=== PATIENT | male | born 1955 | race Caucasian/White ===

== ENCOUNTER 2018-11-22 09:00 | Emergency (ER) | payer SELFPAY ==
[2018-11-22] VITALS (8 sets, daily range): BP systolic 131–145; BP diastolic 74–93; PULSE 71–107; RESP 15–17; TEMP 36.4–36.7; O2SAT 96–98; BMI 29.5
--- NOTE | 2018-11-22 09:18 | CT_ITS ---
STUDY: CT ABDOMEN AND PELVIS WITH CONTRAST REASON FOR EXAM: Male, 63 years old. Dark-colored urine, diarrhea and family history on this. RADIATION DOSAGE (If Supplied By Facility): CTDIvol = ( 15.04 ) mGy, DLP = ( 1148.17 ) mGycm TECHNIQUE: Transaxial images were obtained from the dome of the diaphragm to the symphysis pubis with oral contrast. 100 ml IV Isovue 300 was administered. Sagittal and coronal images were reconstructed. Individualized dose optimization techniques were used for this CT. COMPARISON: Prior comparison studies are not available for review at this time. FINDINGS: There is bilateral basilar dependent atelectasis. The visualized portions of the heart are within normal limits. There are dilated intrahepatic biliary ducts. No liver masses are identified. The gallbladder is very distended measuring approximately 12.5 cm in length. There is a dilated common bile duct which measures 1.5 cm in greatest transverse dimension. The pancreatic duct is dilated measuring up to 8.5 mm in transverse dimension. This suggests an ampullary process probably a mass. Noncalcified stone is possible. A calcified stone is not visualized. Normal spleen. The pancreas is generally atrophic. Normal bilateral adrenal glands. There are multiple low small renal cysts with the largest on the right measuring approximately 10 mm in greatest dimension. There is no evidence for hydronephrosis, hydroureter or radiopaque ureteral calculus. Normal visualized stomach. Is no evidence for dilated bowel, ascites or pneumoperitoneum. The small bowel has a grossly normal appearance. The patient be abnormal thickening of the orozco of the descending colon possibly related to acute or chronic inflammation. The orozco measure up to 1.5 cm in greatest thickness. There is gaseous distention of the transverse colon. There is also gaseous distention of the ascending colon. There is nonspecific thickening of the orozco of the proximal sigmoid colon. There is non-visualization of the appendix. There is patchy atherosclerotic calcification of the abdominal aorta, without a demonstrated aneurysm. Normal inferior vena cava. Normal retroperitoneum. Normal urinary bladder. There are prostatic calcifications. There is a small umbilical hernia containing fat. No degenerative changes of the pubic symphysis. 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 There is degenerative disc disease at L5-S1. The bony pelvis has a grossly normal appearance. There are mild degenerative changes of both hips. CT/Abdomen/Pelvis WITH Contrast IMPRESSION: 1. 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 2. Nonspecific thickening of the orozco of the ascending colon and sigmoid colon possibly related to previous infection or inflammation. 3. Bilateral renal cysts. 4. Very distended gallbladder is probably related to #1. Electronically Signed: Marisol Patton MD at 11:39 EDT , Service support ,
[2018-11-22 09:31] LABS: Absolute Lymphocyte Count 1.18 X10^3/ul (0.83-4.51); Absolute Neutrophil Count 2.2 X10^3/uL (2.0-7.7); Basophil# 0.03 X10^3/uL; Basophil% 0.8 % (0-1); Eosinophil# 0.06 X10^3/uL; Eosinophils% 1.6 % (0-5); Hemoglobin 14.4 g/dl (13.0-16.5); Lymphocyte # 1.18 X10^3/ul (4.0); Lymphocyte % 30.5 % (19-41); Mean Corp Hgb Conc 33.5 g/gl (32-36); Mean Corpuscular Hgb 28.4 pg (27.0-32.0); Mean Corpuscular Volume 84.8 fL (80-94); Mean Platelet Vol. 11.7 fl (6.2-12.0); Monocyte# 0.36 X10^3/uL; Monocyte% 9.3 % (0-10); Neutrophil # 2.23 X10^3/uL (2.7-7.7); Neutrophil % 57.5 % (47-70); Platelet Count 161 K/mm3 (150-450); RBC Distribution Width CV 15.1 % (11.6-14.6); RBC Distribution Width SD 46.6 fl (35.1-43.9); Red Blood Count 5.07 M/mm3 (4.6-6.2); White Blood Count 3.9 K/mm3 (4.4-11.0)
[2018-11-22] MEDS: 0.9% Normal Saline 1,000 ML 1000 ML IV (09:32)
[2018-11-22 09:33] LABS: POSITIVE COUNT NO; POSITIVE DIFFERENTIAL NO; POSITIVE MORPHOLOGY NO
--- NOTE | 2018-11-22 09:42 | ED.DCSUM_ITS ---
- ER Visit Summary Date of Service: 11/22/18 Chief Complaint: Abnormal labs History of Present Illness: The patient is a 63 M who presents with abnormal labs that were noted yesterday. Patient went to the urgent care yesterday and had labs drawn. Patient had a total bilirubin of 17.6 and an ALT of 1345 at the urgent care yesterday. Patient was then referred to the emergency department today. Patient admits to some mild dull epigastric pain. Patient denies any nausea or vomiting. Patient denies any fevers or chills. Patient denies any chest pain or shortness of breath Physical Examination: Vital signs are stable except for mild tachycardia of 107. Patient is afebrile. Patient is in no acute distress. Oral mucosa is pink and moist. Pupils are equal, round, and reactive to light bilaterally. Extraocular muscles are intact. There is scleral icterus noted. Neck is supple. Trachea is midline. There is no JVD noted. Heart was regular and slightly tachycardic. Lungs are clear and equal bilaterally. Abdomen is soft. Bowel sounds are normal. There is no tenderness. There is no rebound or guarding noted. Skin is jaundiced. Cranial nerves II through XII are intact. There are no focal motor or sensory deficits noted. Test Results: CBC was within normal limits. Comprehensive metabolic profile showed a total bilirubin of 20.10, alk phos of 428, ALT of 1761, and AST of 1031. Urinalysis showed an elevated urine bilirubin of 6 and an elevated urobilinogen of 8. There is no evidence of urinary tract infection. CT scan of the abdomen and pelvis showed dilated intrahepatic and extrahepatic hepatic ducts and dilated biliary ducts. This is likely due to an obstruction which may be neoplastic. Emergency Department Course and Treatment: Case was discussed with the hospitalist here. We are unable to do ERCP here at [place] at this time. Patient will be transferred to [facility] [place]. Case was discussed with the hospitalist at [facility] at [facility] [place]. Patient will be transferred there. Patient understood and was agreeable with the plan. All questions were answered. Disposition: Transfer to [facility] [place] Impression: Obstructive jaundice This note was generated with [employer] dictation software. It may contain incorrect words, spelling, and punctuation that were not noted in review of the chart prior to signing This letter Impression ED Disposition - Plan for ED Patient: Disposition: [facility] - Main Diagnosis: Obstructive jaundice Referrals: NOT,DEFINED [NON-STAFF] -
[2018-11-22 09:52] LABS: ALB/GLOB Ratio 0.9 RATIO (0.9-2.4); AST(SGOT) 1031 U/L (15-37); Alanine Aminotransfer ALT/SGPT 1761 U/L (16-61); Albumin, Serum 3.3 g/dL (3.2-5.0); Alkaline Phosphatase 428 U/L (45-117); Anion Gap 7 (5-15); BUN 17 mg/dL (7-18); Calcium,Total 9.2 mg/dL (8.5-10.1); Chloride 104 mmol/L (98-107); Creatinine, Serum 0.85 mg/dL (0.70-1.30); EST Glomerular Filtration Rate 97 mL/min (>60); Est Glom Filt Rate - Afr Amer 117 mL/min (>60); Estimated Creatinine Clearance 104.76 ml/min; Globulin 3.5 g/dL (2.2-4.2); Glucose 235 mg/dL (74-106); Lipase 110 U/L (73-393); Potassium 3.4 mmol/L (3.5-5.1); Protein, Total 6.8 g/dL (6.4-8.2); Sodium Level 132 mmol/L (136-145)
[2018-11-22 11:11] LABS: Mucous, Urine 0 SEEN /hpf (<or=2+)
[2018-11-22 11:18] LABS: Color, Urine Yellow (Yellow); Glucose, Dipstick 1000 mg/dl (Normal); Leukocyte Esterase-Dipstick 25 /ul (Negative); Nitrite-Dipstick Positive (Negative); Occult Blood-Urine 10 /ul (Negative); Protein-Dipstick 30 mg/dl (Negative); Specific Gravity, Urine 1.015 (1.002-1.030); Urine Bilirubin Dipstick 6 mg/dL (Negative); Urine Clarity Sl. Cloudy (Clear); Urine Urobilinogen 8 mg/dl (Normal)
[2018-11-22 11:22] LABS: Ketone-Dipstick 150 mg/dl (Negative)
[2018-11-22 11:24] LABS: Bacteria 1+ /hpf (None Seen); Red Blood Cells-Urine 0-5 SEEN /hpf (0-5); Squamous Epithelial Cells - UA 0-5 SEEN /hpf (0-5); White Blood Cells 0-5 SEEN /hpf (0-5)
== END 2018-11-22 17:15 | disposition short-term general hospital (02) ==
PROVIDERS: Emergency Provider Emergency Medicine; Family Provider Internal Medicine; PCP Internal Medicine
DX: K83.1 Obstruction of bile duct (principal); E11.9 Type 2 diabetes mellitus without complications; Z79.84 Long term (current) use of oral hypoglycemic drugs; Z87.891 Personal history of nicotine dependence
CPT/HCPCS: 74177; 80053; 81001; 83690; 85025; 96360; 99284; J7030; Q9967; A4216

== ENCOUNTER 2020-03-03 22:48 | Emergency (ER) | payer SELFPAY ==
[2018-11-22 09:01] VITALS: BMI 29.5
[2020-03-03 22:49] VITALS: BP 134/79; PULSE 136; RESP 18; TEMP 36.7; BMI 25.1
--- NOTE | 2020-03-03 22:56 | ED.VIS.GEN ---
History of Present Illness Chief Complaint: Constipation Informant: Patient Narrative: 64-year-old male presenting with constipation. He states that he is on morphine and oxycodone for metastatic pancreatic cancer. Patient states that he was previously doing chemotherapy however this was unsuccessful. They are currently doing radiation therapy at [facility] for some spots that he has in his spine. He states that he did try to use magnesium citrate without success. He feels like his stool is impacted at the anal verge. Denies fever, nausea, vomiting. Past Medical History - Allergies and Home Meds Allergies/Adverse Reactions: Allergies No Known Allergies Allergy (Verified 11/22/18 09:01) Primary Care Physician: Sudeep Hoyos MD [Primary Care Provider] - Prior records reviewed: Yes Lives: With Family Smoking Status: Former smoker Review of Systems General: Denies: Chills, Fever Eyes: Denies: Visual changes - bilaterally, Diplopia ENT: Denies: Rhinorrhea, Sore throat Cardiovascular: Denies: Chest pain, Palpitations Respiratory: Denies: Dyspnea, Cough, Dyspnea on exertion Gastrointestinal: Reports: Constipation. Denies: Nausea, Vomiting Genitourinary: Denies: Dysuria Musculoskeletal: Denies: Myalgias Skin: Reports: - - Fundus Neurological: Denies: Headache, Weakness Psych: Denies: Depression Physical Exam Vital Signs/Narrative: Vital Signs Temp Pulse Resp BP 03/03/20 22:49 98.1 F 136 H 18 134/79 H General: No Acute Distress Head: Normocephalic, Atraumatic Eyes: Scleral icterus ENT: Moist mucous membranes Respiratory: No distress Abdomen: Soft. Negative for: Guarding, Rebound tenderness Rectal: - - Fecal impaction with good rectal tone : - - Patient intact in the perineum and rectum Back: Negative for: Nontender Skin: Jaundice. Negative for: Rash Neurological: Alert, Oriented x3 Psychological: Normal affect Diagnostic/Tx/Re-eval Clinical Impression(s) from Imaging Studies Abdomen/Pelvis CT 03/04/20 00:20 IMPRESSION: Diffuse liver metastases new since the prior study. New biliary stent. Dilated pancreatic duct present previously. Status post cholecystectomy. Stool is present throughout the colon suggestive of constipation. Osseous metastases not appreciated on this study. Stable focal area of sclerosis left pubic symphysis. Electronically Signed: Aquiles Carmona MD at 2:10 EDT , Service support , Laboratory Data 03/04/20 03/04/20 03/04/20 00:43 00:43 02:00 WBC 9.1 RBC 3.93 L Hgb 9.7 L Hct 31.6 L MCV 80.4 MCH 24.7 L MCHC 30.7 L RDW Std Deviation 48.8 H RDW Coeff of Lianne 17.2 H Plt Count 319 MPV 10.3 Immature Gran % (Auto) 1.200 H Neut % (Auto) 81.9 H Lymph % (Auto) 5.9 L [place] % (Auto) 10.7 H Eos % (Auto) 0.1 Baso % (Auto) 0.2 Absolute Neuts (auto) 7.5 Absolute Lymphs (auto) 0.54 L Nucleated RBC % 0 Differential Comment SCANNED Sodium 134 L Potassium 3.8 Chloride 101 Carbon Dioxide 27.0 Anion Gap 6 BUN 21 H Creatinine 0.62 L Estim Creat Clear Calc 141.79 Est GFR (MDRD) Af Amer 167 Est GFR (MDRD) Non-Af 138 BUN/Creatinine Ratio 33.7 H Glucose 235 H Calcium 8.3 L Total Bilirubin 0.50 AST 28 ALT 24 Alkaline Phosphatase 230 H Total Protein 6.6 Albumin 2.5 L Globulin 4.1 Albumin/Globulin Ratio 0.6 L Lipase 154 Urine Color Yellow Urine Clarity Clear Urine pH 7.0 Ur Specific [place] 1.010 Urine Protein Negative Urine Glucose (UA) 1000 H Urine Ketones 15 H Urine Occult Blood Negative Urine Nitrite Negative Urine Bilirubin Negative Urine Urobilinogen 1 H Ur Leukocyte Esterase Negative Urine RBC 0 SEEN Urine WBC 0-5 SEEN Ur Squamous Epith Cells 0 SEEN Urine Bacteria 0 SEEN Urine Mucus 0 SEEN - Medical Decision Making Patient was seen and evaluated on arrival for constipation. He states that he did try magnesium citrate however he feels like he is impacted. On physical exam he was impacted. I did partially disimpact him however he was not tolerating this very well. We did discuss lab work and imaging however the patient states that he just had an MRI which diagnosed his metastasis to the spine. He wants to try an enema to see if he can get his bowels moving. If he does not have a bowel movement he is amenable to lab work and imaging. Patient was not able to have a bowel movement. I did obtain lab work and imaging. Compared with his lab work from 02/19/2020 it is about the same. Patient did have a CT of the abdomen pelvis which did identify known metastases. There did not appear to be obstruction of the bowel however his bladder was full. At this point he did state that he was having some difficulty urinating. He did not mention this prior. Urinalysis is negative. Bowens catheter was placed and he will have to be discharged with a leg bag. After his bladder was decompressed the patient did pass flatus. Although the patient does have urinary retention and constipation clinically he does not have saddle anesthesia. He has normal rectal tone. I do not think he has cauda equina syndrome. I will discharge him home with magnesium citrate. He will follow-up with his PCP for referral to urology Impression: 1. Constipation 2. Urinary retention 3. History of metastatic pancreatic disease ED Disposition - Plan for ED Patient: Disposition: Home or Assisted Living Diagnosis: Urinary retention Instructions: ED Constipation, ED Impaction Fecal Treated, ED Urinary Retention Male Referrals: Sudeep Hoyos MD [Primary Care Provider] -
--- NOTE | 2020-03-04 00:20 | CT_ITS ---
STUDY: CT ABDOMEN AND PELVIS WITH CONTRAST REASON FOR EXAM: Male, 64 years old. Constipation. History of pancreatic cancer with metastases to the liver and bone. Chemotherapy and radiation therapy. RADIATION DOSAGE (If Supplied By Facility): CTDIvol = ( 16.64 ) mGy, DLP = ( 1054.11 ) mGycm TECHNIQUE: Transaxial images were obtained from the dome of the diaphragm to the symphysis pubis without oral contrast. IV 100mL Isovue-300 was administered. Sagittal and coronal images were reconstructed. Individualized dose optimization techniques were used for this CT. COMPARISON: November 22, 2018. FINDINGS: The visualized lung bases are unremarkable. The visualized portions of the heart are within normal limits. There are now numerous low-attenuation lesions within the liver with the largest in the right lobe measuring 5.4 x 5.0 cm compatible with diffuse hepatic metastases. There are surgical clips in the gallbladder fossa consistent with a prior cholecystectomy. Normal spleen. Vertically oriented biliary stent in the head of the pancreas. Pancreatic duct is dilated. Normal bilateral adrenal glands. Normal right kidney. Normal left kidney. Subcentimeter lymph nodes in the abdomen. Normal visualized stomach. Normal small intestine. Stool is present throughout the colon which may represent constipation. The appendix is visualized, contains calcium and otherwise appears normal. Appendix is not enlarged. There is atherosclerotic calcification of the abdominal aorta, without a demonstrated aneurysm. Normal inferior vena cava. Normal retroperitoneum. No intra-abdominal free air. Bladder distended with urine. Prostate gland not enlarged. Normal abdominal wall. Osseous metastases not appreciated on this study. Focal sclerosis left pubic symphysis unchanged. CT/Abdomen/Pelvis W IV Cont ONLY IMPRESSION: Diffuse liver metastases new since the prior study. New biliary stent. Dilated pancreatic duct present previously. Status post cholecystectomy. Stool is present throughout the colon suggestive of constipation. Osseous metastases not appreciated on this study. Stable focal area of sclerosis left pubic symphysis. Electronically Signed: Aquiles Carmona MD at 2:10 EDT , Service support ,
[2020-03-04 00:49] VITALS: BP 101/88; PULSE 105; RESP 18; O2SAT 97
[2020-03-04 00:50] LABS: Absolute Lymphocyte Count 0.54 X10^3/uL (0.83-4.51); Absolute Neutrophil Count 7.5 X10^3/uL (2.0-7.7); Basophil# 0.02 X10^3/uL; Basophil% 0.2 % (0-1); Eosinophil# 0.01 X10^3/uL; Eosinophils% 0.1 % (0-5); Hematocrit 31.6 % (40-54); Hemoglobin 9.7 g/dL (13.0-16.5); Lymphocyte # 0.54 X10^3/ul (4.0); Lymphocyte % 5.9 % (19-41); Mean Corp Hgb Conc 30.7 g/dL (32-36); Mean Corpuscular Hgb 24.7 pg (27.0-32.0); Mean Corpuscular Volume 80.4 fL (80-94); Mean Platelet Vol. 10.3 fl (6.2-12.0); Monocyte# 0.98 X10^3/uL; Monocyte% 10.7 % (0-10); NRBC Flagged by Analyzer 0 % (0-5); Neutrophil # 7.46 X10^3/uL (2.7-7.7); Neutrophil % 81.9 % (47-70); POSITIVE DIFFERENTIAL YES; Platelet Count 319 K/mm3 (150-450); RBC Distribution Width CV 17.2 % (11.6-14.6); RBC Distribution Width SD 48.8 fl (35.1-43.9); Red Blood Count 3.93 M/mm3 (4.6-6.2); White Blood Count 9.1 K/mm3 (4.4-11.0)
[2020-03-04 01:02] LABS: Differential Indicated SCAN CRITERIA MET
[2020-03-04 01:15] LABS: ALB/GLOB Ratio 0.6 RATIO (0.9-2.4); AST(SGOT) 28 U/L (15-37); Alanine Aminotransfer ALT/SGPT 24 U/L (16-61); Albumin, Serum 2.5 g/dL (3.2-5.0); Alkaline Phosphatase 230 U/L (45-117); Anion Gap 6 (5-15); BUN 21 mg/dL (7-18); BUN/Creat Ratio 33.7 RATIO (10-20); Calcium,Total 8.3 mg/dL (8.5-10.1); Chloride 101 mmol/L (98-107); Creatinine, Serum 0.62 mg/dL (0.70-1.30); EST Glomerular Filtration Rate 138 mL/min (>60); Est Glom Filt Rate - Afr Amer 167 mL/min (>60); Estimated Creatinine Clearance 141.79 ml/min; Globulin 4.1 g/dL (2.2-4.2); Glucose 235 mg/dL (74-106); Lipase 154 U/L (73-393); Potassium 3.8 mmol/L (3.5-5.1); Protein, Total 6.6 g/dL (6.4-8.2); Sodium Level 134 mmol/L (136-145)
[2020-03-04 01:16] LABS: Differential Comment SCANNED
[2020-03-04 02:04] LABS: Bacteria 0 SEEN /hpf (None Seen); Color, Urine Yellow (Yellow); Glucose, Dipstick 1000 mg/dl (Normal); Ketone-Dipstick 15 mg/dl (Negative); Leukocyte Esterase-Dipstick Negative /ul (Negative); Mucous, Urine 0 SEEN /hpf (<or=2+); Nitrite-Dipstick Negative (Negative); Occult Blood-Urine Negative /ul (Negative); Protein-Dipstick Negative (Negative); Red Blood Cells-Urine 0 SEEN /hpf (0-5); Squamous Epithelial Cells - UA 0 SEEN /hpf (0-5); Urine Bilirubin Dipstick Negative (Negative); Urine Clarity Clear (Clear); Urine Urobilinogen 1 mg/dl (Normal)
[2020-03-04 02:10] LABS: White Blood Cells 0-5 SEEN /hpf (0-5)
[2020-03-04] MEDS: Magnesium Citrate 300 ML PO (02:42)
[2020-03-04 02:47] VITALS: BP 100/81; PULSE 95; RESP 16; O2SAT 100
== END 2020-03-04 02:48 | disposition home or self-care (01) ==
PROVIDERS: Emergency Provider Student in an Organized Health Care Education/Training Program; PCP Internal Medicine
DX: R33.9 Retention of urine, unspecified (principal); K59.00 Constipation, unspecified; C25.9 Malignant neoplasm of pancreas, unspecified; Z87.891 Personal history of nicotine dependence
CPT/HCPCS: 36591; 51702; 74177; 80053; 81001; 83690; 85025; 99285; Q9967; A4216